=== PATIENT | male | born 1955 | race Caucasian/White ===

== ENCOUNTER 2017-05-24 08:35 | Inpatient (IN) | payer MEDICAID ==
[~2017-05-24] VITALS: Ht 177.8 cm; Wt 126.7 kg
[2017-05-24] MEDS ORDERED: SODIUM CHLORIDE 0.9% 500 ML IVB ONE (09:08)
[2017-05-24] MEDS ORDERED: ONDANSETRON HCL 4 MG/2 ML VIAL IV ONE (09:15)
[2017-05-24 09:43] LABS: Basophils # (auto) 0 uL; Basophils % (auto) 0.3 % (0.0-2.0); CONDITION Y; Eosinophils # (auto) 0.1 uL; Eosinophils % (auto) 0.6 % (0.0-7.0); Hematocrit 53.2 % (41.0-53.0); Hemoglobin 18.1 g/dL (13.5-17.5); Lymphocytes # (auto) 1.9 uL; Lymphocytes % (auto) 20.4 % (10.0-50.0); Mean Corpuscular Hemoglobin 32.3 pg (28.0-32.0); Mean Corpuscular Hgb Conc. 34.1 g/dL (32.0-36.0); Mean Corpuscular Volume 94.7 fL (80.0-100.0); Mean Platelet Volume 8.2 fL (7.4-10.4); Monocytes # (auto) 1.1 uL; Monocytes % (auto) 12.4 % (0.0-12.0); Neutrophils % (auto) 66.3 % (37.0-80.0); Platelet Count (auto) 216 10^3/uL (140-450); Red Cell Distribution Width 14.5 % (11.6-16.0); White Blood Cell 9.1 10^3/uL (4.4-10.8)
[2017-05-24 10:04] LABS: Magnesium 2.5 mg/dL (1.6-2.6); Potassium 3.2 mmol/L (3.5-5.1); Total Protein 7.5 g/dL (6.4-8.2)
[2017-05-24 10:17] LABS: Albumin 3.4 g/dL (3.4-5.0); Bilirubin, Total 0.8 mg/dL (0.2-1.0); Calcium 8.8 mg/dL (8.5-10.1)
[2017-05-24] MEDS ORDERED: cefTRIAXone 1GM/50ML D5W 50 ML IV ONE (12:30)
[2017-05-24] MEDS ORDERED: TEMAZEPAM 15 MG CAP PO PRN (12:45)
[2017-05-24] MEDS ORDERED: NITROGLYCERIN 0.4 MG SL TAB SL PRN (12:45)
[2017-05-24] MEDS ORDERED: ACETAMINOPHEN 325 MG TAB PO PRN (12:45)
[2017-05-24] MEDS ORDERED: ONDANSETRON HCL 4 MG/2 ML VIAL IV PRN (12:45)
[2017-05-24] MEDS ORDERED: HYDROcodone-ACET 5/325MG TAB PO PRN (12:45)
[2017-05-24] MEDS ORDERED: DEXTROSE (50%) 50ML SYRG IV PRN (12:45)
[2017-05-24] MEDS ORDERED: POTASSIUM CHL 10 Meq TABLET PO ONE (12:45)
[2017-05-24] MEDS ORDERED: MORPHINE SULF INJ 2 MG/ML SYRINGE 1ML IV PRN ×2 (12:45)
[2017-05-24] MEDS: SODIUM CHLORIDE 0.9% 1,000 ML IV SCH ×2 (13:05→21:51)
[2017-05-24] MEDS: FAMOTIDINE 20 MG TAB PO SCH ×2 (13:21→21:51)
[2017-05-24] MEDS: MULTIPLE VITAMIN TAB PO SCH (13:21)
[2017-05-24 13:54] LABS: INR 1.02 (0.9-1.15); Prothrombin Time 11.1 sec (9.37-12.3)
[2017-05-24] MEDS: metroNIDAZOLE 500MG/100ML 100 ML IV SCH ×2 (13:58→21:51)
[2017-05-24] MEDS ORDERED: IOHEXOL 300 MG/ML 100ML BOTTLE IJ ONE (14:24)
[2017-05-24] MEDS: ACCU-CHEK COMFORT CURVE STRIP VI SCH ×2 (17:00→21:51)
[2017-05-24] MEDS: InsuLIN REG 1unit/0.01ml Soln (100units/ml) SC SCH ×2 (17:00→21:52)
[2017-05-24 17:13] VITALS: BP 137/77
[2017-05-24 21:30] VITALS: BP 132/73
[2017-05-24] MEDS: AMITRIPTYLINE HCL 25 MG TAB PO SCH (21:51)
[2017-05-24] MEDS ORDERED: PANTOPRAZOLE 40 MG/10 ML VIAL IV SCH (22:00)
[2017-05-25 05:05] VITALS: BP 137/77
[2017-05-25] MEDS: ACCU-CHEK COMFORT CURVE STRIP VI SCH ×4 (06:27→22:14)
[2017-05-25] MEDS: metroNIDAZOLE 500MG/100ML 100 ML IV SCH ×3 (06:27→22:13)
[2017-05-25] MEDS: InsuLIN REG 1unit/0.01ml Soln (100units/ml) SC SCH ×4 (06:27→22:00)
[2017-05-25] MEDS: SODIUM CHLORIDE 0.9% 1,000 ML IV SCH ×3 (06:28→21:54)
[2017-05-25 06:51] LABS: Basophils # (auto) 0 uL; Basophils % (auto) 0.3 % (0.0-2.0); CONDITION Y; Eosinophils # (auto) 0.1 uL; Eosinophils % (auto) 1.6 % (0.0-7.0); Hematocrit 46.7 % (41.0-53.0); Hemoglobin 16.2 g/dL (13.5-17.5); Lymphocytes # (auto) 2.4 uL; Lymphocytes % (auto) 29.4 % (10.0-50.0); Mean Corpuscular Hemoglobin 32.7 pg (28.0-32.0); Mean Corpuscular Hgb Conc. 34.7 g/dL (32.0-36.0); Mean Corpuscular Volume 94.2 fL (80.0-100.0); Monocytes # (auto) 1.1 uL; Monocytes % (auto) 13.4 % (0.0-12.0); Neutrophils # (auto) 4.5 uL; Neutrophils % (auto) 55.3 % (37.0-80.0); Platelet Count (auto) 203 10^3/uL (140-450); Red Cell Distribution Width 14.7 % (11.6-16.0); White Blood Cell 8.1 10^3/uL (4.4-10.8)
[2017-05-25 07:10] LABS: Potassium 3.5 mmol/L (3.5-5.1)
[2017-05-25 07:19] LABS: Albumin 2.9 g/dL (3.4-5.0); BUN/Creatinine Ratio 12.9; Bilirubin, Total 0.7 mg/dL (0.2-1.0); Calcium 7.9 mg/dL (8.5-10.1); Total Protein 6.1 g/dL (6.4-8.2)
[2017-05-25] MEDS ORDERED: LIDOCAINE VISCOUS 2% 15ML UD ONE (08:23)
[2017-05-25] MEDS ORDERED: SODIUM CHLORIDE LOCK 10 ML ONE (08:23)
[2017-05-25] MEDS ORDERED: diphenhdrAMINE HCL 50 MG/1 ML VL ONE (08:23)
[2017-05-25 09:00] VITALS: BP 100/57
[2017-05-25] MEDS: cefTRIAXone 1GM/50ML D5W 50 ML IV SCH (09:45)
[2017-05-25] MEDS: MULTIPLE VITAMIN TAB PO SCH (10:00)
[2017-05-25] MEDS ORDERED: PANTOPRAZOLE 40 MG/10 ML VIAL IV SCH (10:00)
[2017-05-25 12:51] VITALS: BP 128/78
[2017-05-25] MEDS: fentaNYL CITRATE 100 MCG/2 ML VL ONE ×2 (13:14→13:17)
[2017-05-25] MEDS: MIDAZOLAM HCL 5 MG/ML-1ML VIAL ONE ×2 (13:14→13:17)
[2017-05-25 16:31] VITALS: BP 131/69
[2017-05-25 20:00] VITALS: BP 106/56
[2017-05-25 22:00] VITALS: BP 106/56
[2017-05-25] MEDS: AMITRIPTYLINE HCL 25 MG TAB PO SCH (22:14)
[2017-05-25] MEDS: PANTOPRAZOLE 40 MG TAB PO SCH (22:14)
[2017-05-26] MEDS: metroNIDAZOLE 500MG/100ML 100 ML IV SCH (05:37)
[2017-05-26 05:58] VITALS: BP 104/52
[2017-05-26] MEDS: ACCU-CHEK COMFORT CURVE STRIP VI SCH ×2 (06:40→11:30)
[2017-05-26] MEDS: InsuLIN REG 1unit/0.01ml Soln (100units/ml) SC SCH ×2 (06:40→11:30)
[2017-05-26] MEDS: SODIUM CHLORIDE 0.9% 1,000 ML IV SCH (06:41)
[2017-05-26 06:59] LABS: Basophils # (auto) 0 uL; Basophils % (auto) 0.5 % (0.0-2.0); CONDITION Y; Eosinophils # (auto) 0.2 uL; Eosinophils % (auto) 2.5 % (0.0-7.0); Hematocrit 44.1 % (41.0-53.0); Hemoglobin 15.4 g/dL (13.5-17.5); Lymphocytes # (auto) 2.2 uL; Lymphocytes % (auto) 34.4 % (10.0-50.0); Mean Corpuscular Hemoglobin 33.3 pg (28.0-32.0); Mean Corpuscular Hgb Conc. 34.9 g/dL (32.0-36.0); Mean Corpuscular Volume 95.3 fL (80.0-100.0); Monocytes # (auto) 0.9 uL; Monocytes % (auto) 14.6 % (0.0-12.0); Neutrophils # (auto) 3.1 uL; Platelet Count (auto) 195 10^3/uL (140-450); Red Cell Distribution Width 14.2 % (11.6-16.0); White Blood Cell 6.4 10^3/uL (4.4-10.8)
[2017-05-26] MEDS ORDERED: AMIT25TA9 PO (07:20)
[2017-05-26 07:28] LABS: Albumin 2.7 g/dL (3.4-5.0); BUN/Creatinine Ratio 12.7; Bilirubin, Total 0.8 mg/dL (0.2-1.0); Calcium 7.7 mg/dL (8.5-10.1); Potassium 3.7 mmol/L (3.5-5.1); Total Protein 5.9 g/dL (6.4-8.2)
[2017-05-26 08:30] VITALS: BP 105/59
[2017-05-26] MEDS: PANTOPRAZOLE 40 MG TAB PO SCH (09:41)
[2017-05-26] MEDS: cefTRIAXone 1GM/50ML D5W 50 ML IV SCH (09:41)
[2017-05-26] MEDS: MULTIPLE VITAMIN TAB PO SCH (09:41)
[2017-05-26 12:30] VITALS: BP 123/69
[2017-05-26 13:15] VITALS: BP 105/59
== END 2017-05-26 16:07 | disposition home or self-care (01) | DRG 241 ==
LOC: EDBD 08:35 → ER 08:38 → TELE 08:39 → TELE-E-ADS 15:36 → TELE-WESTW 16:33 → WEST WING 05-26 02:58
PROVIDERS: ADMIT Internal Medicine; ATTEND Internal Medicine
PROC: 0DB68ZX Excision of Stomach, Via Natural or Artificial Opening Endoscopic, Diagnostic (ICD-10-PCS; principal; 2017-05-25 13:12)
DX: K29.81 Duodenitis with bleeding (principal); E11.22 Type 2 diabetes mellitus with diabetic chronic kidney disease; R65.10 Systemic inflammatory response syndrome (SIRS) of non-infectious origin without acute organ dysfunction; E44.0 Moderate protein-calorie malnutrition; D75.1 Secondary polycythemia; Z68.41 Body mass index [BMI] 40.0-44.9, adult; K29.71 Gastritis, unspecified, with bleeding; E86.0 Dehydration; E87.6 Hypokalemia; K76.9 Liver disease, unspecified; I12.9 Hypertensive chronic kidney disease with stage 1 through stage 4 chronic kidney disease, or unspecified chronic kidney disease; N18.2 Chronic kidney disease, stage 2 (mild); G47.00 Insomnia, unspecified; M19.90 Unspecified osteoarthritis, unspecified site; Z82.3 Family history of stroke; Z82.49 Family history of ischemic heart disease and other diseases of the circulatory system
CPT/HCPCS: 36415; 43239; 71010; 74176; 74177; 80053; 82150; 82270; 82962; 83036; 83605; 83690; 83735; 85025; 85610; 87040; 87045; 87493; 87899; 93005; 94761; 96361; 96365; 96375; C9113; J0696; J1815; J2250; J2405; J3490

== ENCOUNTER 2018-08-02 08:32 | Emergency (ER) | payer MEDICAID ==
[~2018-08-02] VITALS: Ht 172.7 cm; Wt 131.5 kg
[~2018-08-02 08:32] MED LIST: AMIT25TA9 PO
[2018-08-02 08:58] VITALS: BP 136/82
[2018-08-02] MEDS ORDERED: KETOROLAC TROMETH 60MG/2ML VIAL IM ONE (09:15)
== END 2018-08-02 10:19 | disposition home or self-care (01) ==
LOC: ER 08:32
DX: M25.562 Pain in left knee (principal); M19.90 Unspecified osteoarthritis, unspecified site; E11.9 Type 2 diabetes mellitus without complications; I10 Essential (primary) hypertension
CPT/HCPCS: 29505; 73562; 96372; 99284; J1885